=== PATIENT | female | born 1965 | race Caucasian/White ===

== ENCOUNTER 2019-03-12 14:43 | Day surgery (SDC) | payer OTHER ==
[2019-03-12] MEDS ORDERED: LACTATED RINGER'S 1,000 ML IV (16:00)
[2019-03-12] MEDS ORDERED: FENTAnyl 50 MCG/ML VIAL (17:06)
[2019-03-12] MEDS ORDERED: MIDAZOLAM 1 MG/ML 2 ML INJ (17:06)
[2019-03-12] MEDS ORDERED: PROPOFOL 20 ML (17:22)
[2019-03-12] MEDS ORDERED: SUGAMMADEX SODIUM 200 MG/2 ML VIAL IV (17:22)
[2019-03-12] MEDS ORDERED: LIDOCAINE 100 MG SYRINGE (17:22)
[2019-03-12] MEDS ORDERED: SUCCINYLCHOLINE CHLORIDE 100 MG/5 ML SYG IV (17:22)
[2019-03-12] MEDS ORDERED: ROCURONIUM 50 MG INJ (17:22)
[2019-03-12] MEDS ORDERED: CEFAZOLIN 1 GM INJ (17:22)
[2019-03-12] MEDS ORDERED: FENTAnyl 50 MCG/ML VIAL IV ×2 (17:30→18:30)
[2019-03-12] MEDS: BUPIVACAINE 0.25% (MPF) 30 ML INJ (17:30)
[2019-03-12] MEDS ORDERED: METOCLOPRAMIDE 10 MG INJ IV ×2 (17:30→18:30)
[2019-03-12] MEDS ORDERED: ONDANSETRON 4 MG INJ IV ×2 (17:30→18:30)
[2019-03-12] MEDS ORDERED: ALBUTEROL 0.083% (NEB) 2.5 MG/3 ML AMP HHN (17:30)
[2019-03-12] MEDS ORDERED: DIPHENHYDRAMINE 50 MG INJ IV ×2 (17:30→18:30)
[2019-03-12] MEDS: HYDROmorphONE 1 MG/5 ML IV SYRINGE IV ×5 (17:59→18:33)
[2019-03-12] MEDS: KETOROLAC 15 MG INJ IV (18:00)
[2019-03-12] MEDS ORDERED: HYDROmorphONE 1 MG/5 ML IV SYRINGE IV (18:30)
[2019-03-12] MEDS ORDERED: MEPERIDINE 25 MG INJ IV (18:30)
[2019-03-12] MEDS: ACETAMINOPHEN 500 MG TAB PO (18:50)
== END 2019-03-12 19:39 | disposition home or self-care (01) ==
LOC: SDS 14:43
DX: M24.542 Contracture, left hand (principal)
CPT/HCPCS: 26440